=== PATIENT | male | born 1965 | race Caucasian/White ===

== ENCOUNTER 2017-02-05 09:19 | Emergency (ER) | payer OTHER, MEDICAID ==
--- NOTE | 2017-02-05 09:26 | EDPHY ---
HPI/HX/ROS/PE/MDM Narrative: CHIEF COMPLAINT: Overdose. HPI: The patient is a 51-year-old male, brought in by EMS from [facility] with intentional overdose. The patient is prescribed Xanax. He took 18 Xanax 40 minutes prior to arrival. The patient denies suicidal ideation. Patient told wanted to overdose because he is stressed out about his current living situation. The patient has a history of SI and PTSD. During transport the patient became more drowsy. Vitals in the field were pulse: 88, SPO2: 94, BP: 155/93, D-stick 98. REVIEW OF SYSTEMS: Aside from elements discussed in the HPI, a comprehensive 10-point review of systems was reviewed and is negative. PMH: SI, PTSD, Asthma. SOCIAL HISTORY: Marijuana use. PHYSICAL EXAM: General: Patient is alert, in no acute distress. ENT: Eyes are normal to inspection, 3mm and reactive bilaterally. ENT inspection normal. Neck: Normal inspection. Full range of motion. Respiratory: No respiratory distress. Breath sounds normal bilaterally. Cardiovascular: Regular rate and rhythm. Strong peripheral pulses. Abdomen: The abdomen is nontender to palpation. There are no peritoneal signs. There are normal bowel sounds. Back: Normal to inspection. No tenderness to palpation. Skin: Normal color. No rash. Warm and dry. Extremities: Normal appearance. Full range of motion. Neuro: Oriented x3. Normal motor function. Normal sensory function. (Zheng Cleaning) ED Course: The patient was brought in by EMS after intentional overdose with Xanax. The patient took 18 Xanax 40 minutes prior to arrival. I reviewed the patient's past medical records from 05/2016. The patient was here for depression, he had a psychiatric evaluation at that time and was discharged home. The patient was evaluated by behavioral health. Plan to discharge patient home if vitals remain stable. Patient is currently sleeping. Vitals are normal. 2:00 p.m.: I reevaluated the patient. He is sleeping comfortably. Vital signs are normal. (Zheng Cleaning) 15:00 patient signed over from me from Dr. Cleaning pending ambulation. Patient is been cleared by mental health. 15:35 leaving the emergency department P patient became combative with police. They had taken the ground. Patient sustained an abrasion to his left upper eyelid and left cheek. He had no loss of conscious. Got minimal tenderness without bony step-offs. No nasal bone tenderness. He is awake alert acting appropriately. Remainder of his medical exam is unremarkable. There is no obvious injuries he is ambulating unassisted. Patient is awake alert. He is medically cleared for injury at this point. He is medically clear for shelter. ( Clifton Meneses) MDM: Mental health has evaluated the patient and they are quite familiar with him. They believe ingestion was secondary to secondary gain and not a true self-harm attempt. The have lifted the hold and recommend discharge home when medically clear. On re-evaluation at 2:30pm, patient still sleeping but arousable. Plan for continued observation in ED until mental status normalizes and likely discharge home. I have signed patient out to Dr. Meneses at 1500. (Zheng Cleaning) 1500 Care assumed by me from Dr Cleaning. Pt here with OD. Well known to mental health with behavior suggesting secondary gain. Not a danger to self. Needs metabolism and road test. Cleared for discharge. 1535 patient is ambulating without assistance the emergency department. He is medically cleared for discharge. (Clifton Meneses) - Data Points Laboratory Results: Laboratory Results 02/05/17 09:35 02/05/17 09:35 02/05/17 02/05/17 02/05/17 11:53 09:35 09:35 WBC 4.59 10^3/uL 10^3/uL (3.80-9.50) RBC 5.36 10^6/uL 10^6/uL (4.40-6.38) Hgb 16.8 g/dL g/dL (13.7-17.5) Hct 49.1 % % (40.0-51.0) MCV 91.6 fL fL (81.5-99.8) MCH 31.3 pg pg (27.9-34.1) MCHC 34.2 g/dL g/dL (32.4-36.7) RDW 12.1 % % (11.5-15.2) Plt Count 173 10^3/uL 10^3/uL (150-400) MPV 10.4 fL fL (8.7-11.7) Neut % (Auto) 55.2 % % (39.3-74.2) Lymph % (Auto) 33.8 % % (15.0-45.0) [place] % (Auto) 7.8 % % (4.5-13.0) Eos % (Auto) 1.7 % % (0.6-7.6) Baso % (Auto) 1.5 % % (0.3-1.7) Nucleat RBC Rel Count 0.0 % % (0.0-0.2) Absolute Neuts (auto) 2.53 10^3/uL 10^3/uL (1.70-6.50) Absolute Lymphs (auto) 1.55 10^3/uL 10^3/uL (1.00-3.00) Absolute Monos (auto) 0.36 10^3/uL 10^3/uL (0.30-0.80) Absolute Eos (auto) 0.08 10^3/uL 10^3/uL (0.03-0.40) Absolute Basos (auto) 0.07 10^3/uL 10^3/uL (0.02-0.10) Absolute Nucleated RBC 0.00 10^3/uL 10^3/uL (0-0.01) Immature Gran % 0.0 % % (0.0-1.1) Immature Gran # 0.00 10^3/uL 10^3/uL (0.00-0.10) Sodium 139 mEq/L mEq/L (134-144) Potassium 4.9 mEq/L mEq/L (3.5-5.2) Chloride 104 mEq/L mEq/L (97-110) Carbon Dioxide 28 mEq/l mEq/l (22-31) Anion Gap 7 mEq/L L mEq/L (8-16) BUN 15 mg/dL mg/dL (7-23) Creatinine 0.8 mg/dL mg/dL (0.7-1.3) Estimated GFR > 60 Glucose 80 mg/dL mg/dL (70-100) Calcium 8.8 mg/dL mg/dL (8.5-10.4) Urine Opiates Screen NEGATIVE (NEGATIVE) Urine Barbiturates NEGATIVE (NEGATIVE) Ur Phencyclidine Scrn NEGATIVE (NEGATIVE) Ur Amphetamine Screen NEGATIVE (NEGATIVE) U Benzodiazepines Scrn NON-NEGATIVE H (NEGATIVE) Urine Cocaine Screen NEGATIVE (NEGATIVE) U Marijuana (THC) Screen NON-NEGATIVE H (NEGATIVE) Ethyl Alcohol < 10 mg/dL mg/dL (0-10) Medications Given: Discontinued Medications Sodium Chloride (Ns) 1,000 mls @ 0 mls/hr IV EDNOW ONE PRN Reason: Wide Open Stop: 02/05/17 10:31 Last Admin: 02/05/17 10:30 Dose: 1,000 mls General Initial Vital Signs: Initial Vital Signs Temperature (C) 36.3 C 02/05/17 09:30 Heart Rate 81 02/05/17 09:30 Respiratory Rate 20 02/05/17 09:30 Blood Pressure 120/93 H 02/05/17 09:30 O2 Sat (%) 95 02/05/17 09:30 O2 Delivery Mode Nasal Cannula O2 (L/minute) 2 Allergies/Adverse Reactions: ibuprofen [From Motrin] Allergy (Severe, Verified 05/09/16 14:40) Hives Home Medications: Medication Instructions Recorded ALPRAZolam [Xanax] 1 - 2 mg PO TID PRN 09/17/15 Albuterol [Proventil Inhaler HFA 2 puffs IH Q4H PRN 09/17/15 (*)] Herbals/Supplements -Info Only 1 ea PO DAILY 09/17/15 Cyclobenzaprine [Flexeril] 10 mg PO 10/09/15 traZODone [traZODONE 100MG (*)] 100 mg PO 10/09/15 Venlafaxine Xr [Effexor Xr 75MG 75 mg PO DAILY 02/05/17 (*)] Departure - Departure Clinical Impression: Abrasion of face Overdose Qualifiers: Encounter type: initial encounter Injury intent: intentional self-harm Qualified Code(s): T50.902A - Poisoning by unspecified drugs, medicaments and biological substances, intentional self-harm, initial encounter Condition: Good Instructions: Adult Overdose (ED), Abrasion (ED) Additional Instructions: Please followup with [facility] for further evaluation. MEDICALLY CLEAR FOR SKILLED NURSING Referrals: [facility],. [Clinic] - As per Instructions Report Scribed for: Zheng Cleaning Report Scribed by: Amanda Keith Date of Report: 02/05/17 Time of Report: 09:26 Physician Review and Approval Statement: Portions of this note were transcribed by a medical record administrator. I personally performed the history, physical exam, and medical decision-making; and confirmed the accuracy of the information in the transcribed note.
[2017-02-05 09:37] VITALS: TEMP 97.3
[2017-02-05 09:51] LABS: ADD DIFF? NO; ADD MORPH? NO; ADD SCAN? NO; ATYPICAL LYMPHOCYTE FLAG 10 (0-99); FRAGMENT RBC FLAG 0 (0-99); HEMATOCRIT 49.1 % (40.0-51.0); HEMOGLOBIN 16.8 g/dL (13.7-17.5); LEFT SHIFT FLG 0 (0-99); LIPEMIA HEMOLYSIS FLAG 90 (0-99); MEAN CELL HEMOGLOBIN 31.3 pg (27.9-34.1); MEAN CELL HEMOGLOBIN CONCENTR. 34.2 g/dL (32.4-36.7); MEAN CELL VOLUME 91.6 fL (81.5-99.8); MEAN PLATELET VOLUME 10.4 fL (8.7-11.7); PLATELET CLUMPS FLAG 30 (0-99); PLATELET COUNT 173 10^3/uL (150-400); RED BLOOD CELL COUNT 5.36 10^6/uL (4.40-6.38); RED CELL DISTRIBUTION WIDTH 12.1 % (11.5-15.2)
[2017-02-05 10:05] LABS: ANION GAP 7 mEq/L (8-16); CALCIUM 8.8 mg/dL (8.5-10.4); CARBON DIOXIDE 28 mEq/l (22-31); CHLORIDE 104 mEq/L (97-110); CREATININE 0.8 mg/dL (0.7-1.3); ETHANOL SERUM < 10 mg/dL (0-10); GLOMERULAR FILTRATION RATE > 60; GLUCOSE 80 mg/dL (70-100); POTASSIUM 4.9 mEq/L (3.5-5.2); SODIUM 139 mEq/L (134-144)
[2017-02-05] MEDS ORDERED: NS 1,000 ML IV ONE (10:30)
[2017-02-05 11:57] VITALS: O2SAT 99
[2017-02-05 14:04] VITALS: BP 125/71; PULSE 72; RESP 14
== END 2017-02-05 15:48 | disposition home or self-care (01) ==
LOC: EDUNIT#
DX: T42.4X2A Poisoning by benzodiazepines, intentional self-harm, initial encounter (principal); S00.81XA Abrasion of other part of head, initial encounter; J45.909 Unspecified asthma, uncomplicated; X58.XXXA Exposure to other specified factors, initial encounter
CPT/HCPCS: 80305; G0480

== ENCOUNTER 2018-12-09 13:35 | Emergency (ER) | payer OTHER, MEDICAID ==
[2018-12-09 13:41] VITALS: BP 108/75
--- NOTE | 2018-12-09 13:54 | EDPHY ---
H & P Time Seen by Provider: 12/09/18 13:41 HPI/ROS: HPI Help with orthopedic follow-up. 53-year-old male on foot. This patient sustained a boxer's fracture to his left hand 2 days ago. He is right-hand dominant. He was seen at an urgent care for this injury. He was splinted appropriately. He presents to the emergency department asking for help for follow-up with Orthopedics. I initially explained to him that I could provide him with the on-call orthopedic specialists contact information. He stated that he wanted more help with setting up the appointment. He denies any new injury. His pain is well controlled. No distal loss of sensation, discoloration or weakness. No other complaints. ROS: Constitutional: No fever, no chills. No weakness. Musculoskeletal: As above. Skin: No rashes. Neurological: No focal weakness or altered sensation. Past medical history: Pneumonia. Psychiatric illness. Social history: Currently here by himself. Nonsmoker. No alcohol. Physical Exam: General Appearance: Alert, no distress. This patient is responding to questions appropriately and in full sentences. This patient appears well- hydrated and well-nourished. Eyes: Pupils equal and round no pallor or injection. No lid edema, erythema or injection. Right upper extremity exam: The right hand is appropriately splinted in an ulnar gutter splint. He has normal capillary refill in all digits. Normal sensation. Neurological: Motor sensory function is grossly intact. Cranial nerves are normal. Gait is normal. Skin: Warm and dry, no rashes. Musculoskeletal: Neck is supple and nontender. Extremities are symmetrical. All joints range without pain or impingement. Psychiatric: No agitation. No depression. Database: EKG: Imaging: Procedures: Emergency department course: Triage vital signs reviewed and are unremarkable. I spoke with Nicolette, our catalytic case operator. She will interviewed the patient and assist in providing orthopedic follow-up appointment. 2:20 p.m., patient has been seen by case management. Appointment with Dr. Veronica Gifford of the Orthopedic Hand surgery service will be arranged for him for follow-up and further management of his boxer's fracture. He is in agreement with this plan. His remaining emergency department course under my care has been uneventful. He was discharged in good condition. Return to emergency department precautions were reviewed with him. Differential Diagnosis: The differential diagnosis on this patient includes but is not limited to boxer' s fracture of right hand, as above. Significant neurovascular injury unlikely. Infection unlikely. This represents a partial list of diagnoses considered. These considerations are based on history, physical exam, past history, reassessment and diagnostic testing. Smoking Status: Current some day smoker Constitutional: Initial Vital Signs Temperature (C) 36.9 C 12/09/18 13:37 Heart Rate 97 12/09/18 13:37 Respiratory Rate 16 12/09/18 13:37 Blood Pressure 108/75 12/09/18 13:37 O2 Sat (%) 94 12/09/18 13:37 O2 Delivery Mode Room Air Allergies/Adverse Reactions: ibuprofen [From Motrin] Allergy (Severe, Verified 05/09/16 14:40) Hives Home Medications: Medication Instructions Recorded ALPRAZolam [Xanax] 1 - 2 mg PO TID PRN 09/17/15 Albuterol [Proventil Inhaler HFA 2 puffs IH Q4H PRN 09/17/15 (*)] Herbals/Supplements -Info Only 1 ea PO DAILY 09/17/15 Cyclobenzaprine [Flexeril] 10 mg PO 10/09/15 traZODone [traZODONE 100MG (*)] 100 mg PO 10/09/15 Venlafaxine Xr [Effexor Xr 75MG 75 mg PO DAILY 02/05/17 (*)] Departure - Departure Disposition: Home, Routine, Self-Care Clinical Impression: Boxers fracture Condition: Good Instructions: Hand Fracture (ED) Additional Instructions: Read and follow provided instructions. Follow-up with Orthopedics this week, Dr. Veronica Gifford, as instructed for further evaluation and management of your hand fracture. Ibuprofen dosin mg every 6 hours with meals for the next 3 days only. Take only as needed for pain. Return to the emergency department for worsening symptoms or other serious concerns. Referrals: Emmanuel Gifford MD [Medical Doctor] - As per Instructions
--- NOTE | 2018-12-09 15:54 | ASMTCMCOM ---
CM Note CM Note Notes: Patient is very pleasant and is requesting assistance with scheduling a follow appointment with orthopedics fro a L hand boxer fracture that he sustained 2 days ago. See ED report for details. Chart reviewed. Patient explains that he has difficulty scheduling appointments over the phone due to anxiety and "personality disorder" issues which often lead to frustration and difficulty processing information. He has asked me to assist hi with this follow up. Patient was initially provided a referral for follow up 2 days ago at an "[facility] [place]" in [place]. He prabhakar snot have that referral with him and Dr. Rico (ED) has provided a referral to Dr. Moya at this time. This CM has contacted Yenifer at Dr. Moya's office n [place] and scheduled an appointment for patient tomorrow at 1:40 PM at the [place] office. ED report and face sheet faxed to Yenifer at . Patient informed of appointment time, address, and phone number of the office. Patient also asked to stop at the urgent care in [place] to pick remover a CD of his x-rays from his initial visit 2 days ago. Patient verbalizes understanding and tells me that he will pick remover CD this afternoon and is able to make it to his appointment tomorrow with Dr. Moya Patient asked this CM to contact Renee Schaeffer homeless navigator with [facility] to inform her of detials regarding patient's ED visit and follow up appointment. I have LM anf heard back from Renee, provided her with details re appointment tomorrow and she will follow up with patient and help with transporation as needed. Date Signed: 12/09/2018 03:53 PM Electronically Signed By:Nicolette Stevens RN
== END 2018-12-09 14:25 | disposition home or self-care (01) ==
DX: S62.306D Unspecified fracture of fifth metacarpal bone, right hand, subsequent encounter for fracture with routine healing (principal); X58.XXXD Exposure to other specified factors, subsequent encounter; Y92.9 Unspecified place or not applicable; Y99.9 Unspecified external cause status; Y93.9 Activity, unspecified

== ENCOUNTER 2019-03-14 13:27 | Emergency (ER) | payer OTHER, MEDICAID | END 2019-03-14 14:25 ==

== ENCOUNTER → 2019-04-01 | Outpatient (CLI) | payer OTHER | LOC: FIMAGING 14:16 ==